=== PATIENT | male | born 1970 | race Two or more races ===

== ENCOUNTER 2021-05-13 09:08 | Emergency (ER) | payer OTHER ==
[2021-05-13 09:32] VITALS: BP 142/77; PULSE 91; TEMP 98.2; BMI 31.7
== END 2021-05-13 11:38 | disposition home or self-care (01) ==
LOC: JER 09:08
DX: R22.1 Localized swelling, mass and lump, neck (principal)
CPT/HCPCS: 93971-TC; 99284-25